=== PATIENT | male | born 1950 | race African-American/Black ===

== ENCOUNTER 2017-02-01 12:18 | Emergency (ER) | payer MEDICARE ==
[~2017-02-01] VITALS: Ht 180.3 cm; Wt 95.0 kg
[2017-02-01] MEDS ORDERED: ATORVASTATIN CA80 MG PO ×2 (12:43→14:53)
[2017-02-01] MEDS ORDERED: TOPROL XL25 M1 PO (12:45)
[2017-02-01] MEDS ORDERED: NITROGLYCERIN0.4 MG SL (12:45)
[2017-02-01] MEDS ORDERED: ASPIRIN81 MG PO (12:45)
[2017-02-01] MEDS ORDERED: BRILINTA90 MG PO ×2 (12:46→14:53)
[2017-02-01 12:59] LABS: HEMATOCRIT 46.4 % (39.0-50.0); HEMOGLOBIN 15.4 g/dl (14.0-18.0); IMMATURE GRANULOCYTES 0.2 % (0.0-1.0); MEAN CELL VOLUME 94.1 fL CALC (80.0-100.0); MEAN CORPUSCULAR HGB 31.2 pG CALC (26.0-32.0); MEAN CORPUSCULAR HGB CONC 33.2 g/L CALC (32.0-36.0); NEUT# 6.91 thou/uL (1.82-7.42); RED BLOOD COUNT 4.93 mill/uL (4.70-6.10); RED CELL DISTRI WIDTH 13.5 % (11.5-15.5)
[2017-02-01 13:20] LABS: ALBUMIN 4.5 g/dL (3.2-5.0); ALKALINE PHOSPHATASE 69 u/l (38-126); ANION GAP 13 (6-22 (CALC)); BILIRUBIN, TOTAL 0.6 mg/dL (0.0-1.4); BUN 13 mg/dL (8-23); BUN/CREATININE RATIO 14 (12-20 (CALC)); CALCIUM 9.4 mg/dL (8.4-10.2); CARBON DIOXIDE 28 mmol/l (22-30); CHLORIDE 108 mmol/l (95-108); CREATININE 0.9 mg/dL (0.7-1.3); GFR > 60 ML/MIN (>=60 (CALC)); GFR FOR AFR.AMER. > 60 ML/MIN (>=60 (CALC)); GLUCOSE 97 mg/dL (82-115); POTASSIUM 4.2 mmol/l (3.5-5.1); SGOT/AST 22 u/l (19-48); SGPT/ALT 28 u/l (11-66); SODIUM 145 mmol/l (137-146); TOTAL PROTEIN 7.8 g/dL (6.3-8.2)
[2017-02-01 13:31] LABS: MYOGLOBIN 27 ng/mL (0 - 121)
[2017-02-01 13:45] VITALS: BP 114/71
[2017-02-01] MEDS ORDERED: METO25TAB PO (14:53)
[2017-02-01] MEDS ORDERED: ASPIRIN 81 LOW81 MG PO (14:53)
[2017-02-01] MEDS ORDERED: NITROGLYCERIN0.4 MG PO (14:53)
== END 2017-02-01 15:39 | disposition left against medical advice (07) ==
LOC: ED 12:18
PROVIDERS: Emergency Medicine
DX: R07.9 Chest pain, unspecified (principal); R55 Syncope and collapse; I10 Essential (primary) hypertension; E78.00 Pure hypercholesterolemia, unspecified; I25.2 Old myocardial infarction; F17.210 Nicotine dependence, cigarettes, uncomplicated; Z91.14 Patient's other noncompliance with medication regimen; Z91.19 Patient's noncompliance with other medical treatment and regimen

== ENCOUNTER 2019-08-14 | Emergency (ER) | payer MEDICARE, MEDICAID ==
[~2019-08-14] MED LIST: ASPIRIN 81 LOW81 MG PO; ASPIRIN81 MG PO; ATORVASTATIN CA80 MG PO; BRILINTA90 MG PO; METO25TAB PO; NITROGLYCERIN0.4 MG PO; NITROGLYCERIN0.4 MG SL; TOPROL XL25 M1 PO
[2019-08-14 17:23] LABS: HEMATOCRIT 44.6 % (39.0-50.0); HEMOGLOBIN 14.5 g/dl (14.0-18.0); IMMATURE GRANULOCYTES 0.2 % (0.0-5.0); MEAN CELL VOLUME 95.5 fL CALC (80.0-100.0); MEAN CORPUSCULAR HGB CONC 32.5 g/L CALC (32.0-36.0); NEUT# 2.5 thou/uL (1.82-7.42); RED BLOOD COUNT 4.67 mill/uL (4.70-6.10); RED CELL DISTRI WIDTH 13.3 % (11.5-15.5)
[2019-08-14 17:53] LABS: ALBUMIN 4.2 g/dL (3.2-5.0); ALKALINE PHOSPHATASE 73 u/l (38-126); BILIRUBIN, TOTAL 0.4 mg/dL (0.0-1.4); BUN 12 mg/dL (8-23); BUN/CREATININE RATIO 16 (12-20 (CALC)); CARBON DIOXIDE 30 mmol/l (22-30); CHLORIDE 100 mmol/l (95-108); CREATININE 0.7 mg/dL (0.7-1.3); GFR > 60 ML/MIN (>=60 (CALC)); GFR FOR AFR.AMER. > 60 ML/MIN (>=60 (CALC)); POTASSIUM 3.7 mmol/l (3.5-5.1); TOTAL PROTEIN 7.6 g/dL (6.3-8.2)
[2019-08-14 18:11] LABS: ANION GAP 10 (6-22 (CALC)); SGOT/AST 41 u/l (19-48); SODIUM 136 mmol/l (137-146)
== END 2019-08-14 20:10 | disposition home or self-care (01) ==
PROVIDERS: Family Medicine
DX: R55 Syncope and collapse (principal); J11.1 Influenza due to unidentified influenza virus with other respiratory manifestations; I10 Essential (primary) hypertension; F17.210 Nicotine dependence, cigarettes, uncomplicated

== ENCOUNTER 2020-09-08 21:30 | Observation (INO) | payer MEDICARE ==
[~2020-09-08] VITALS: Ht 175.3 cm; Wt 74.5 kg
[2020-09-08] MEDS ORDERED: ASPIRIN81 MG PO (21:53)
[2020-09-08 22:05] LABS: HEMATOCRIT 42.7 % (39.0-50.0); HEMOGLOBIN 13.7 g/dl (14.0-18.0); IMMATURE GRANULOCYTES 0.3 % (0.0-5.0); MEAN CELL VOLUME 93.8 fL CALC (80.0-100.0); MEAN CORPUSCULAR HGB 30.1 pG CALC (26.0-32.0); MEAN CORPUSCULAR HGB CONC 32.1 g/dL CAL (32.0-36.0); NEUT# 4.65 thou/uL (1.82-7.42); RED BLOOD COUNT 4.55 mill/uL (4.70-6.10); RED CELL DISTRI WIDTH 13.4 % (11.5-15.5)
[2020-09-08 22:21] LABS: ALBUMIN 4.1 g/dL (3.2-5.0); ALKALINE PHOSPHATASE 81 u/l (38-126); BILIRUBIN, TOTAL 0.5 mg/dL (0.0-1.4); BUN 17 mg/dL (8-23); BUN/CREATININE RATIO 14 (12-20 (CALC)); CHLORIDE 101 mmol/l (95-108); CREATININE 1.3 mg/dL (0.7-1.3); GFR 55 ML/MIN (>=60 (CALC)); GFR FOR AFR.AMER. > 60 ML/MIN (>=60 (CALC)); POTASSIUM 3.7 mmol/l (3.5-5.1); SGOT/AST 68 u/l (19-48); SODIUM 133 mmol/l (137-146); TOTAL PROTEIN 7.5 g/dL (6.3-8.2)
[2020-09-08 22:22] LABS: ANION GAP 14 (6-22 (CALC)); CARBON DIOXIDE 22 mmol/l (22-30)
[2020-09-08 22:27] LABS: PROTHROMBIN TIME 10.2 SECONDS (9.0-12.5)
[2020-09-08 22:33] LABS: MYOGLOBIN 277 ng/mL (0 - 121)
[2020-09-09] VITALS (10 sets, daily range): BP systolic 96–124; BP diastolic 57–74
[2020-09-09 01:09] LABS: URINE BILIRUBIN - DIPSTICK NEGATIVE (NEGATIVE); URINE BLOOD DIPSTICK TRACE-LYSED (NEGATIVE); URINE COLOR YELLOW; URINE GLUCOSE - DIPSTICK NEGATIVE (NEGATIVE); URINE KETONE TRACE mg/dL (NEGATIVE); URINE LEUK ESTERASE NEGATIVE (NEGATIVE); URINE NITRITE - DIPSTICK NEGATIVE (Negative); URINE PROTEIN - DIPSTICK TRACE mg/dL (NEG-TRACE); URINE SPECIFIC GRAVITY >=1.030; URINE UROBILINOGEN - DIPSTICK 0.2 E.U./dL (0.2)
[2020-09-09 06:50] LABS: CHOLESTEROL HDL RATIO 4.8 (<4.4 (CALC))
[2020-09-10 03:17] VITALS: BP 115/80
[2020-09-10 07:30] VITALS: BP 110/68
[2020-09-10 09:21] LABS: HEMATOCRIT 39.8 % (39.0-50.0); HEMOGLOBIN 12.8 g/dl (14.0-18.0); IMMATURE GRANULOCYTES 0.2 % (0.0-5.0); MEAN CELL VOLUME 95.4 fL CALC (80.0-100.0); MEAN CORPUSCULAR HGB 30.7 pG CALC (26.0-32.0); MEAN CORPUSCULAR HGB CONC 32.2 g/dL CAL (32.0-36.0); NEUT# 2.19 thou/uL (1.82-7.42); RED BLOOD COUNT 4.17 mill/uL (4.70-6.10); RED CELL DISTRI WIDTH 13.7 % (11.5-15.5)
[2020-09-10] MEDS ORDERED: CIPROFLOXACN500 MG PO (09:23)
[2020-09-10 09:38] LABS: ALKALINE PHOSPHATASE 71 u/l (38-126); ANION GAP 12 (6-22 (CALC)); BILIRUBIN, TOTAL 0.4 mg/dL (0.0-1.4); BUN 9 mg/dL (8-23); BUN/CREATININE RATIO 11 (12-20 (CALC)); CARBON DIOXIDE 23 mmol/l (22-30); CHLORIDE 107 mmol/l (95-108); CREATININE 0.8 mg/dL (0.7-1.3); GFR > 60 ML/MIN (>=60 (CALC)); GFR FOR AFR.AMER. > 60 ML/MIN (>=60 (CALC)); POTASSIUM 4.1 mmol/l (3.5-5.1); SGOT/AST 112 u/l (19-48); SODIUM 138 mmol/l (137-146)
[2020-09-10 09:39] LABS: ALBUMIN 3.2 g/dL (3.2-5.0)
[2020-09-10 10:30] VITALS: BP 123/70
== END 2020-09-10 12:00 | disposition home or self-care (01) ==
LOC: ED 21:30 → ED-I 09-09 00:44 → ED 09-09 01:09 → MS2 09-09 01:10
PROVIDERS: Family Medicine; Nurse Practitioner; ADMIT Internal Medicine; ATTEND Internal Medicine
DX: R55 Syncope and collapse (principal); R42 Dizziness and giddiness; T36.8X5A Adverse effect of other systemic antibiotics, initial encounter; R50.9 Fever, unspecified; I95.9 Hypotension, unspecified; R00.0 Tachycardia, unspecified; N41.9 Inflammatory disease of prostate, unspecified; I10 Essential (primary) hypertension; I25.10 Atherosclerotic heart disease of native coronary artery without angina pectoris; E87.1 Hypo-osmolality and hyponatremia; E78.5 Hyperlipidemia, unspecified; F17.200 Nicotine dependence, unspecified, uncomplicated; Z95.5 Presence of coronary angioplasty implant and graft; Z20.822 Contact with and (suspected) exposure to COVID-19
CPT/HCPCS: J1650; J3475

== ENCOUNTER 2022-05-19 21:56 | Observation (INO) | payer MEDICARE ==
[~2022-05-19] VITALS: Ht 175.3 cm; Wt 77.0 kg
[~2022-05-19 21:56] MED LIST changes: +CIPROFLOXACN500 MG PO
[2022-05-19 22:04] VITALS: BP 144/105
[2022-05-19 22:24] VITALS: BP 142/101
[2022-05-19 22:34] LABS: HEMOGLOBIN 14.4 g/dl (14.0-18.0); IMMATURE GRANULOCYTES 0.2 % (0.0-5.0); MEAN CELL VOLUME 95.4 fL CALC (80.0-100.0); MEAN CORPUSCULAR HGB 31.2 pG CALC (26.0-32.0); MEAN CORPUSCULAR HGB CONC 32.7 g/dL CAL (32.0-36.0); NEUT# 3.16 thou/uL (1.82-7.42); RED BLOOD COUNT 4.61 mill/uL (4.70-6.10)
[2022-05-19 22:35] VITALS: BP 132/80
[2022-05-19 22:45] VITALS: BP 125/80
[2022-05-19 22:46] LABS: ALKALINE PHOSPHATASE 101 u/l (38-126); ANION GAP 13 (6-22 (CALC)); BILIRUBIN, TOTAL 0.4 mg/dL (0.0-1.4); BUN 9 mg/dL (8-23); BUN/CREATININE RATIO 11 (12-20 (CALC)); CARBON DIOXIDE 25 mmol/l (22-30); CHLORIDE 101 mmol/l (95-108); CREATININE 0.8 mg/dL (0.7-1.3); GFR FOR AFR.AMER. > 60 ML/MIN (>=60 (CALC)); GFR OTHER RACES > 60 ML/MIN (>=60 (CALC)); MAGNESIUM 1.8 mg/dL (1.6-2.3); POTASSIUM 3.6 mmol/l (3.5-5.1); SGOT/AST 68 u/l (19-48); SODIUM 135 mmol/l (137-146)
[2022-05-19 22:52] LABS: ALBUMIN 4.1 g/dL (3.2-5.0); TOTAL PROTEIN 7.4 g/dL (6.3-8.2)
[2022-05-19 23:00] VITALS: BP 135/77
[2022-05-20] VITALS (12 sets, daily range): BP systolic 102–150; BP diastolic 51–95
[2022-05-20 00:58] LABS: URINE BILIRUBIN - DIPSTICK NEGATIVE (NEGATIVE); URINE BLOOD DIPSTICK TRACE-INTACT (NEGATIVE); URINE COLOR YELLOW; URINE GLUCOSE - DIPSTICK NEGATIVE (NEGATIVE); URINE KETONE NEGATIVE (NEGATIVE); URINE LEUK ESTERASE NEGATIVE (NEGATIVE); URINE NITRITE - DIPSTICK NEGATIVE (Negative); URINE PROTEIN - DIPSTICK NEGATIVE (NEG-TRACE); URINE SPECIFIC GRAVITY <=1.005; URINE UROBILINOGEN - DIPSTICK 0.2 E.U./dL (0.2)
--- NOTE | 2022-05-20 02:22 | NUR ---
Patient arrived from ED via wheelchair. Alert, verbal, able to make needs known. Denies pain. Room air. Ambulatory, uses cane. Patient instructed to call for assist with toileting. Bed low, locked, and call adams in reach.
[2022-05-20 05:37] LABS: ANION GAP 12 (6-22 (CALC)); BUN 8 mg/dL (8-23); BUN/CREATININE RATIO 10 (12-20 (CALC)); CARBON DIOXIDE 26 mmol/l (22-30); CHLORIDE 104 mmol/l (95-108); CREATININE 0.8 mg/dL (0.7-1.3); GFR FOR AFR.AMER. > 60 ML/MIN (>=60 (CALC)); GFR OTHER RACES > 60 ML/MIN (>=60 (CALC)); MAGNESIUM 1.8 mg/dL (1.6-2.3); POTASSIUM 3.3 mmol/l (3.5-5.1); SODIUM 138 mmol/l (137-146)
--- NOTE | 2022-05-20 20:20 | NUR ---
PATIENT ASSESMENT COMPLETED AT THIS TIME.
--- NOTE | 2022-05-21 | NUR ---
PATIENT RESTING COMOFRTABLY, NO APPARENT DISTRESS. CALL LIGHT AND BEDSIDE TABLE WITHIN REACH.
[2022-05-21 00:19] VITALS: BP 113/64
--- NOTE | 2022-05-21 01:44 | NUR ---
ANTIBIOTIC HUNG AT THIS TIME.
[2022-05-21 03:58] VITALS: BP 106/57
--- NOTE | 2022-05-21 04:15 | NUR ---
PATIENT RESTING COMOFRTABLY. NO APPARENT DISTRESS NOTED. CALL LGHT AND BEDISDE TABLE WITHN REACH.
[2022-05-21 06:18] LABS: HEMOGLOBIN 13.1 g/dl (14.0-18.0); MEAN CELL VOLUME 96.4 fL CALC (80.0-100.0); MEAN CORPUSCULAR HGB 31.6 pG CALC (26.0-32.0); MEAN CORPUSCULAR HGB CONC 32.8 g/dL CAL (32.0-36.0); RED BLOOD COUNT 4.15 mill/uL (4.70-6.10); RED CELL DISTRI WIDTH 13.2 % (11.5-15.5)
[2022-05-21 06:29] LABS: ANION GAP 11 (6-22 (CALC)); BUN 8 mg/dL (8-23); BUN/CREATININE RATIO 10 (12-20 (CALC)); CARBON DIOXIDE 28 mmol/l (22-30); CHLORIDE 104 mmol/l (95-108); CREATININE 0.8 mg/dL (0.7-1.3); GFR FOR AFR.AMER. > 60 ML/MIN (>=60 (CALC)); GFR OTHER RACES > 60 ML/MIN (>=60 (CALC)); MAGNESIUM 1.8 mg/dL (1.6-2.3); POTASSIUM 3.7 mmol/l (3.5-5.1); SODIUM 140 mmol/l (137-146)
[2022-05-21 06:45] VITALS: BP 117/72
[2022-05-21 10:27] VITALS: BP 101/62
[2022-05-21 14:16] VITALS: BP 110/63
--- NOTE | 2022-05-21 18:40 | NUR ---
DC INSTRUCTIONS GIVEN, MEDICATION INSTRUCTIONS GIVEN, IV DCED, TELE DCED. PT TAKEN HOME VIA [facility].
== END 2022-05-21 18:33 | disposition home or self-care (01) ==
LOC: ED 21:56 → ED-I 22:24 → ED 22:24 → ED-I 05-20 00:55 → ED 05-20 01:10 → MS2 05-20 01:11
PROVIDERS: Internal Medicine; ADMIT Internal Medicine; ATTEND Internal Medicine
DX: R53.1 Weakness (principal); R42 Dizziness and giddiness; I10 Essential (primary) hypertension; I25.10 Atherosclerotic heart disease of native coronary artery without angina pectoris; E78.00 Pure hypercholesterolemia, unspecified; F17.200 Nicotine dependence, unspecified, uncomplicated; Z95.5 Presence of coronary angioplasty implant and graft; Z79.02 Long term (current) use of antithrombotics/antiplatelets; Z79.82 Long term (current) use of aspirin; Z20.822 Contact with and (suspected) exposure to COVID-19
CPT/HCPCS: Q9967